=== PATIENT | female | born 1950 | race Caucasian/White ===

== ENCOUNTER 2018-01-27 00:48 | Inpatient (IN) ==
--- NOTE | 2018-01-27 00:52 | Emergency Department Note ---
Disposition Clinical Impression: Nausea vomiting and diarrhea, Viral illness, Hypoxia Disposition: Admitted As Inpatient Condition: Fair Referrals: Mary Bryan CNP [Primary Care Provider] - Forms: ED Satisfaction Letter Time of Disposition: 03:42 Nausea/Vomiting/Diarrhea HPI - General Chief complaint: ED Nausea/Vomiting/Diarrhea Stated complaint: abd pain, n/v Time Seen by Provider: 01/27/18 00:51 Source: patient, EMS Mode of arrival: EMS Limitations: no limitations Nursing Notes Reviewed: Yes Vital Signs Reviewed: Yes - History of Present Illness HPI Narrative: Patient presents today with 2 days of worsening nausea vomiting diarrhea and abdominal pain. Daughter states there is been some confusion at home as well. Patient has a history of asthma and states that she has had a cough but it is nonproductive. She has had a fever at home. There is not been any blood in her vomit or stool. She is no sick contacts. Pt Subjective Complaint: nausea, vomiting, diarrhea, abdominal pain - Related Data Home Medications Medication Instructions Recorded Confirmed Albuterol Sulfate [Ventolin Hfa] 90 mcg IH Q4H PRN 02/07/15 01/27/18 Metoprolol [Lopressor] 50 mg PO BID 02/07/15 01/27/18 Valsartan [Diovan] 160 mg PO DAILY 02/07/15 01/27/18 Cetirizine HCl [Zyrtec] 10 mg PO QAM 01/27/18 01/27/18 Dulaglutide [Trulicity] 0.75 mg SQ QWEEK 01/27/18 01/27/18 FLUoxetine HCl [Fluoxetine HCl] 40 mg PO QAM 01/27/18 01/27/18 Fluticasone Propionate Nasal 16 gm NS BID 01/27/18 01/27/18 [Flonase] Furosemide [Lasix] 40 mg PO DAILY 01/27/18 01/27/18 Insulin Lispro Protamin/Lispro 40 unit SQ BID 01/27/18 01/27/18 [Humalog Mix 75-25 Kwikpen] Montelukast [Singulair] 10 mg PO HS 01/27/18 01/27/18 Potassium Chloride [Klor-Con 10] 10 meq PO BID 01/27/18 01/27/18 amLODIPine [Norvasc] 5 mg PO DAILY 01/27/18 01/27/18 Allergies Allergy/AdvReac Type Severity Reaction Status Date / Time [place] Allergy Swelling Verified 01/27/18 01:11 of Lip/Tongue/Throat doxycycline AdvReac Abdominal Unverified 02/04/15 14:37 Pain pregabalin [From Lyrica] AdvReac Swelling Unverified 02/04/15 14:37 of Lip/Tongue/Throat Review of Systems: All other systems are negative except as noted/marked Chart generated with voice recognition software Nursing notes reviewed Old records reviewed Past Medical History - Past Medical History Attestation: Yes The following information was validated with the patient. Source: patient, old records reviewed, nursing notes reviewed Medical history: Reports: asthma Psychiatric history: Reports: anxiety, depression - Social History Smoking Status: Never smoker Smokeless Tobacco Status: No Alcohol use: Reports: none Drug use: Reports: none Physical Exam General: Mild distress mildly tachycardic hypoxic on arrival Head: normocephalic, atraumatic Eyes: EOMI, PERRLA mouth: Dry mucous membranes Neck: NO CLA, Supple Chest wall: normal rise, no crepitus, no deformity noted Lungs: moving air well, no distress Heart: Tachycardic and regular Abd: soft, diffusely tender but it is not a surgical abdomen. Hyperactive bowel sounds : deferred MSK: strength equal in all four extremities Ext: moves all four extremities, no obvious deformities Skin: cap refill normal, warm, dry neuro : CN2-12 grossly intact, A&Ox3 Psych: normal affect, not anxious Course Vital Signs Temperature 99.4 F 01/27/18 00:49 Pulse Rate 105 01/27/18 00:49 Respiratory Rate 16 01/27/18 00:49 Blood Pressure 155/69 01/27/18 00:49 O2 Sat by Pulse Oximetry 86 01/27/18 00:49 Temperature 99.4 F 01/27/18 00:49 Pulse Rate 94 01/27/18 03:35 Respiratory Rate 14 01/27/18 03:35 Blood Pressure 160/70 01/27/18 03:35 O2 Sat by Pulse Oximetry 88 01/27/18 03:35 Oxygen Delivery Oxygen Delivery Room Air Nausea/Vomiting/Diarrhea - MDM Narrative Medical decision making narrative: Patient presented today with fever, n/v/d and not feeling well. Workup unremarkable. Patient had mentioned right foot pain fromw hens he fell. when I went to eval her foot, no bruising or redness noted. After extensive workup, patient feeling much better, and appears to have viral infection. no vomiting no diarrhea. We did give her one duoneb, and then did a trial off o2. Patient states she's feeling okay however off o2, she desatted down to 84%. Patient reluctantly agreed to be placed back on o2 and stay the night. I suspect her viral process could have exacerbated her asthma. Patient does have sleep apnea and is supposed to wear cpap at night, but admits she doesn't wear it. Dr Palma aware of patient, accepts to floor. Will do CTA of chest to rule out pE prior to admit CTA negative for PE. patient resting comfortably on re-exam. Will admit as discussed - Medical Records Medical records reviewed: Yes I reviewed the patient's medical records. - Lab Data Lab results reviewed: Yes I reviewed the patient's lab results. Result diagrams: 01/27/18 01:42 01/27/18 01:42 Lab Results 01/27/18 01/27/18 01/27/18 Range/Units 01:29 01:42 01:42 WBC 11.2 H (4.3-11.1) K/mcL RBC 3.82 (3.82-4.97) M/mcL Hgb 11.3 L (11.5-15.4) g/dL Hct 33.9 L (35.3-44.9) % MCV 88.7 (83.0-100.0) fL MCH 29.6 (28.0-33.3) pg MCHC 33.3 (31.6-35.5) g/dL RDW 14.3 (11.5-14.5) % Plt Count 167 (140-400) K/mcL MPV 10.3 (9.4-12.4) fL Immature Gran % 1.3 (0-4) % Seg Neutrophils % 88.8 % Lymphocytes % 4.7 % Monocytes % 4.7 % Eosinophils % 0.3 % Basophils % 0.2 % Neutrophils # 10.0 H (1.6-8.9) K/mcL Lymphocytes # 0.5 L (0.6-4.6) K/mcL Monocytes # 0.5 (0.0-1.3) K/mcL Eosinophils # 0.0 (0.0-0.6) K/mcL Basophils # 0.0 (0.0-0.2) K/mcL Sample Site ABG pH (7.32-7.45) pH Units ABG pCO2 (35-45) mmHg ABG pO2 (85-104) mmHg ABG HCO3 (21-27) mEq/L ABG Total CO2 (20-26) mEq/L ABG O2 Saturation (95-98) % ABG Base Excess (-2 to 3) mEq/L [place] Test O2 Delivery Device Inspired O2 (1-15=lpm [id number]=%) Sodium 133 L (136-145) mEq/L Potassium 4.4 (3.5-5.1) mEq/L Chloride 92 L (98-107) mEq/L Carbon Dioxide 33 H (23-29) mEq/L BUN 14 (8-23) mg/dL Creatinine 1.20 (0.60-1.20) mg/dL Est GFR ( Amer) 55 L (> 60) Est GFR (Non-Af Amer) 45 L (> 60) BUN/Creatinine Ratio 12 (6-26) Glucose 253 H (70-105) mg/dL Calculated Osmolality 285 (280-300) Lactic Acid (0.5-2.2) mmol/L Calcium 9.3 (8.6-10.3) mg/dL Magnesium (1.6-2.6) mg/dL Total Bilirubin 0.8 (0.3-1.0) mg/dL AST 25 (13-39) Units/L ALT 15 (7-52) Units/L Alkaline Phosphatase 89 (34-104) Units/L Troponin I (< 0.04) ng/mL Serum Total Protein 7.2 (6.4-8.9) g/dL Albumin 4.0 (3.5-5.7) g/dL Globulin 3.2 (2.4-3.5) g/dL Albumin/Globulin Ratio 1.3 (1.1-2.2) Lipase 7 L (11-82) Units/L Urine Color Yellow (Yellow) Urine Clarity Clear (Clear) Urine pH 8.5 H (5.0-8.0) pH Units Ur Specific [place] 1.020 (1.010-1.025) Urine Protein Negative (Neg-Trace) mg/dL Urine Glucose (UA) 250 H (Normal) mg/dL Urine Ketones Negative (Negative) mg/dL Urine Blood Negative (Negative) Urine Nitrite Negative (Negative) Urine Bilirubin Negative (Negative) Urine Urobilinogen Normal (Normal) mg/dL Ur Leukocyte Esterase Negative (Negative) Ur Culture Indicated? NO (NO) 01/27/18 01/27/18 01/27/18 Range/Units 01:42 01:42 02:59 WBC (4.3-11.1) K/mcL RBC (3.82-4.97) M/mcL Hgb (11.5-15.4) g/dL Hct (35.3-44.9) % MCV (83.0-100.0) fL MCH (28.0-33.3) pg MCHC (31.6-35.5) g/dL RDW (11.5-14.5) % Plt Count (140-400) K/mcL MPV (9.4-12.4) fL Immature Gran % (0-4) % Seg Neutrophils % % Lymphocytes % % Monocytes % % Eosinophils % % Basophils % % Neutrophils # (1.6-8.9) K/mcL Lymphocytes # (0.6-4.6) K/mcL Monocytes # (0.0-1.3) K/mcL Eosinophils # (0.0-0.6) K/mcL Basophils # (0.0-0.2) K/mcL Sample Site R Radial ABG pH 7.43 (7.32-7.45) pH Units ABG pCO2 47 H (35-45) mmHg ABG pO2 78 L (85-104) mmHg ABG HCO3 32 H (21-27) mEq/L ABG Total CO2 33 H (20-26) mEq/L ABG O2 Saturation 96 (95-98) % ABG Base Excess 6 H (-2 to 3) mEq/L [place] Test Positive O2 Delivery Device Cannula Inspired O2 2.5 (1-15=lpm js27-780=%) Sodium (136-145) mEq/L Potassium (3.5-5.1) mEq/L Chloride (98-107) mEq/L Carbon Dioxide (23-29) mEq/L BUN (8-23) mg/dL Creatinine (0.60-1.20) mg/dL Est GFR ( Amer) (> 60) Est GFR (Non-Af Amer) (> 60) BUN/Creatinine Ratio (6-26) Glucose (70-105) mg/dL Calculated Osmolality (280-300) Lactic Acid 1.6 (0.5-2.2) mmol/L Calcium (8.6-10.3) mg/dL Magnesium 1.8 (1.6-2.6) mg/dL Total Bilirubin (0.3-1.0) mg/dL AST (13-39) Units/L ALT (7-52) Units/L Alkaline Phosphatase (34-104) Units/L Troponin I < 0.03 (< 0.04) ng/mL Serum Total Protein (6.4-8.9) g/dL Albumin (3.5-5.7) g/dL Globulin (2.4-3.5) g/dL Albumin/Globulin Ratio (1.1-2.2) Lipase (11-82) Units/L Urine Color (Yellow) Urine Clarity (Clear) Urine pH (5.0-8.0) pH Units Ur Specific [place] (1.010-1.025) Urine Protein (Neg-Trace) mg/dL Urine Glucose (UA) (Normal) mg/dL Urine Ketones (Negative) mg/dL Urine Blood (Negative) Urine Nitrite (Negative) Urine Bilirubin (Negative) Urine Urobilinogen (Normal) mg/dL Ur Leukocyte Esterase (Negative) Ur Culture Indicated? (NO) - Radiology Data Radiology results reviewed: Yes I reviewed the patient's radiology results. patient mentioned to the clinical lab technologist she did not tolerate ct contrast well, changed to without. EXAMINATION: SINGLE XRAY VIEW OF THE CHEST 01/27/2018 1:47 am COMPARISON: Chest radiograph 06/12/2014 HISTORY: ORDERING SYSTEM PROVIDED HISTORY: cough FINDINGS: Mediastinum: Normal heart size and mediastinal contours for technique. Lungs: Normal lung volumes. No pneumothorax or airspace consolidation. Pleura: No pleural effusion or thickening. Musculoskeletal: No acute osseous abnormality. Unremarkable soft tissues. Upper Abdomen: Included upper abdomen is unremarkable. XR/XR chest 1V portable IMPRESSION: No acute findings. No focal pneumonia. D/ / Cody Galeas / Cody Galeas Interpreting Provider: Cody Galeas R #: [id number] XR/XR foot 3V RT IMPRESSION: Soft tissue swelling and skin thickening about the lower leg and foot. No underlying acute osseous abnormality. D/ / Cody Galeas / Cody Galeas Interpreting Provider: Cody Galeas EXAMINATION: CT OF THE ABDOMEN AND PELVIS WITHOUT CONTRAST 01/27/2018 2:35 am TECHNIQUE: CT of the abdomen and pelvis was performed without the administration of intravenous contrast. Multiplanar reformatted images are provided for review. Dose modulation, iterative reconstruction, and/or weight based adjustment of the mA/kV was utilized to reduce the radiation dose to as low as reasonably achievable. COMPARISON: None. HISTORY: ORDERING SYSTEM PROVIDED HISTORY: abd pain FINDINGS: ABDOMEN Liver: Low-attenuation liver parenchyma. Liver is enlarged measuring over 19 cm craniocaudal. Gallbladder: Surgically absent. Biliary: No intra or extrahepatic bile duct dilatation. Pancreas: Normal. Spleen: Enlarged, measuring just over 13 cm in maximum dimension. Adrenals: Normal. Kidneys: Kidneys are symmetric in size. No hydronephrosis or nephrolithiasis. GI Tract: No apparent wall thickening or obstruction. Appendix is not identified, however there is no pericecal inflammatory stranding or fluid. Peritoneum/Retroperitoneum: No enlarged lymph nodes, free air or free fluid. Vascular: Normal caliber abdominal aorta. PELVIS Genitourinary: Normal urinary bladder. Surgically absent uterus. Normal vaginal cuff. No adnexal mass. Other: No free fluid. No enlarged lymph nodes. MUSCULOSKELETAL Bones and Soft Tissues: No acute soft tissue or osseous abnormality. Spinal cord stimulator with generator in the lower back soft tissues. Surrounding fat stranding. Lumbar spondylosis. Other: Clear lung bases. Normal included heart and pericardium. CT/CT abd pelvis wo no iv no oral IMPRESSION: No acute abdominopelvic findings. Hepatosplenomegaly with hepatic steatosis. D/ / Cody Galeas / Cody Galeas Interpreting Provider: Cody Galeas - EKG Data EKG attestation: Yes I reviewed and interpreted this EKG. EKG results narrative: EKG interpreted by myself as sinus rhythm with rate 97 and a QTC of [address] elevation . prior EKG is not available at this time
[2018-01-27] MEDS ORDERED: *HR* FentaNYL (PF) 100 MCG/2 ML VIAL IVP ONE (01:05)
[2018-01-27] MEDS ORDERED: Ondansetron 4 MG/2 ML VIAL IVP ONE (01:05)
[2018-01-27] MEDS ORDERED: 0.9 % Sodium Chloride 1,000 ML IVC ONE (01:05)
[2018-01-27] MEDS ORDERED: Isovue-370 500 ML INFUS..BTL IV ONE ×4 (01:08→05:21)
[2018-01-27 02:11] LABS: Bilirubin,Urine Negative (Negative); Blood,Urine Negative (Negative); Clarity,Urine Clear (Clear); Color,Urine Yellow (Yellow); Glucose,Urine (UA) 250 mg/dL (Normal); Ketones,Urine Negative (Negative); Leukocyte Esterase,Urine Negative (Negative); Nitrite,Urine Negative (Negative); PH,Urine 8.5 pH Units (5.0-8.0); Protein,Urine Negative (Neg-Trace); Urobilinogen,Urine Normal (Normal)
[2018-01-27 02:18] LABS: Basophils % 0.2 %; Eosinophils % 0.3 %; Hematocrit 33.9 % (35.3-44.9); Hemoglobin 11.3 g/dL (11.5-15.4); Immature Granulocytes % 1.3 % (0-4); Lymphocytes # 0.5 K/mcL (0.6-4.6); Lymphocytes % 4.7 %; Mean Corpuscular HGB Conc 33.3 g/dL (31.6-35.5); Mean Corpuscular Hemoglobin 29.6 pg (28.0-33.3); Mean Corpuscular Volume 88.7 fL (83.0-100.0); Mean Platelet Volume 10.3 fL (9.4-12.4); Monocytes # 0.5 K/mcL (0.0-1.3); Monocytes % 4.7 %; Platelet Count 167 K/mcL (140-400); Red Blood Count 3.82 M/mcL (3.82-4.97); Red Cell Distribution Width 14.3 % (11.5-14.5); Segmented Neutrophils % 88.8 %
[2018-01-27 02:22] LABS: Albumin/Globulin Ratio 1.3 (1.1-2.2); Bilirubin,Total 0.8 mg/dL (0.3-1.0); Calcium 9.3 mg/dL (8.6-10.3); Globulin 3.2 g/dL (2.4-3.5); Magnesium 1.8 mg/dL (1.6-2.6); Potassium 4.4 mEq/L (3.5-5.1); Total Protein 7.2 g/dL (6.4-8.9); Troponin I < 0.03 ng/mL (< 0.04)
[2018-01-27] MEDS ORDERED: 0.9 % Sodium Chloride 500 ML IVC ONE (02:31)
[2018-01-27 03:02] LABS: ABG Base Excess 6 mEq/L (-2 to 3); ABG HCO3 32 mEq/L (21-27); ABG Oxygen Saturation 96 % (95-98); ABG PCO2 47 mmHg (35-45); ABG PH 7.43 pH Units (7.32-7.45); ABG PO2 78 mmHg (85-104); ABG TCO2 33 mEq/L (20-26); Blood Gas FiO2 2.5 (1-15=lpm or21-100=%)
[2018-01-27] MEDS ORDERED: Ipratropium/Albuterol Neb 3 ML IH ONE (03:05)
[2018-01-27] MEDS ORDERED: cefTRIAXone 1,000 MG in Water for inj. (sterile) 20 ML 10 ML IVP ONE ×2 (03:46→05:21)
[2018-01-27] MEDS ORDERED: Azithromycin 500 MG in D5% in Water 250 ML IVPB SCH (04:00)
[2018-01-27] MEDS ORDERED: Naloxone 0.4 MG/ML INJ IVP PRN (05:21)
[2018-01-27] MEDS ORDERED: (Dulaglutide [Trulicity] 0.75 MG) SQ SCH (05:21)
[2018-01-27] MEDS ORDERED: 0.9 % Sodium Chloride 1,000 ML IVC SCH (05:21)
[2018-01-27] MEDS ORDERED: Ibuprofen 400 MG TABLET PO PRN (05:21)
[2018-01-27] MEDS: Loratadine 10 MG TABLET PO SCH (08:05)
[2018-01-27] MEDS: FLUoxetine 20 MG CAPSULE PO SCH (08:05)
[2018-01-27] MEDS: Fluticasone Propionate Nasal 50 MCG/SPRAY BOTTLE NS SCH ×2 (08:07→21:04)
[2018-01-27] MEDS: Insulin NPH/REG 70/30 100 UNIT/ML (x5UNIT) SQ SCH ×2 (08:18→16:40)
[2018-01-27] MEDS ORDERED: Furosemide 40 MG TABLET PO SCH (09:00)
[2018-01-27] MEDS ORDERED: amLODIPine 5 MG TABLET PO SCH (09:00)
[2018-01-27] MEDS: Valsartan 160 MG TABLET PO SCH (11:13)
[2018-01-27] MEDS ORDERED: *HR* Dextrose 50 % in Water (Syg) 50 ML SYRINGE IVP PRN (11:19)
[2018-01-27] MEDS ORDERED: Dextrose Gel 15 GM/37.5 ML TUBE PO PRN ×2 (11:19)
[2018-01-27] MEDS ORDERED: D5% in Water 1,000 ML IVC PRN (11:19)
--- NOTE | 2018-01-27 11:59 | Internal Med History&Physical ---
Date of Encounter: 01/27/18 Time of Encounter: 11:20 Assessment and Plan (1) Nausea vomiting and diarrhea Current visit: Yes Status: Acute Suspect viral gastroenteritis. Continue IV fluids and use antiemetics as needed. (2) Hypertension Current visit: Yes Status: Chronic Continue Norvasc, Lopressor, and Diovan. Qualifiers: Hypertension type: essential hypertension Qualified Code(s): I10 - Essential (primary) hypertension (3) Venous stasis dermatitis of both lower extremities Current visit: Yes Status: Chronic Change from Lasix to Bumex to lessen edema and erythema. Will start oral Keflex with lactobacillus for possible cellulitis. (4) Anemia Current visit: Yes Status: Acute Duration unknown. Hemoglobin was normal at 12.5 on 02/04/2015. Recheck labs in a.m. Qualifiers: Anemia type: unspecified type Qualified Code(s): D64.9 - Anemia, unspecified (5) DM type 2 (diabetes mellitus, type 2) Current visit: Yes Status: Chronic Check hemoglobin A1c in a.m. Continue Trulicity, 70/30 insulin, and do Accu- Cheks with SSI. Qualifiers: Diabetes mellitus complication status: with kidney complications Diabetes mellitus complication detail: with chronic kidney disease Chronic kidney disease stage: stage 3 (moderate) Qualified Code(s): E11.22 - Type 2 diabetes mellitus with diabetic chronic kidney disease; N18.3 - Chronic kidney disease, stage 3 (moderate); Z79.4 - terminal operator (current) use of insulin (6) CKD (chronic kidney disease) Current visit: Yes Status: Chronic Monitor renal indices. Qualifiers: Chronic kidney disease stage: stage 3 (moderate) Qualified Code(s): N18.3 - Chronic kidney disease, stage 3 (moderate) (7) Hypoxia Current visit: Yes Status: Acute Check room air oximetry on 6 minute walk in a.m. Internal Medicine - H&P: HPI Chief complaint: Vomiting and diarrhea Admitted From: Emergency Dept Plans for Post Hospital Care: Home History of present illness: Ms. Henson is a 67 year old female came to emergency room stating she had 3 day history of vomiting, diarrhea, crampy abdominal pain, fevers and chills. Her speech seemed confused the evening of January 26 so family brought her to emergency room. She was evaluated and admitted to [facility] floor for ongoing care needs. She states she has not had an episode of vomiting or diarrhea since coming through emergency room. She has minimal residual abdominal discomfort at present time. She does not feel hunger. She denies melena, hematochezia, or hematemesis. She reports family members had similar but less severe symptoms 1 -2 days before her symptoms developed. GI history is pertinent for cholecystectomy but she denies disorders of her liver or exocrine pancreas. Past Med Surg Social Fam HX - Past Medical History Medical history: arthritis, asthma, diabetes, fibromyalgia, hypertension Additional medical history: apnea Psychiatric history: anxiety, depression - Past Surgical History Surgical History: cholecystectomy, hysterectomy, knee replacement Additional surgical history: pain pump back. bladder tuck - Social History Smoking Status: Never smoker Smokeless Tobacco Status: No Alcohol use: none Drug use: none - Family History Father Living Status: Age at : 55 Hx Family Cardiac Disorders: Yes Hx Family Endocrine Disorder: Yes (diabetes) Internal Medicine - H&P: Meds Albuterol Sulfate [Ventolin Hfa] 90 mcg IH Q4H PRN 02/07/15 [History] Metoprolol [Lopressor] 50 mg PO BID 02/07/15 [History] Valsartan [Diovan] 160 mg PO DAILY 02/07/15 [History] Cetirizine HCl [Zyrtec] 10 mg PO QAM 01/27/18 [History] Dulaglutide [Trulicity] 0.75 mg SQ QWEEK 01/27/18 [History] FLUoxetine HCl [Fluoxetine HCl] 40 mg PO QAM 01/27/18 [History] Fluticasone Propionate Nasal [Flonase] 16 gm NS BID 01/27/18 [History] Furosemide [Lasix] 40 mg PO DAILY 01/27/18 [History] Insulin Lispro Protamin/Lispro [Humalog Mix 75-25 Kwikpen] 40 unit SQ BID [History] Montelukast [Singulair] 10 mg PO HS 01/27/18 [History] Potassium Chloride [Klor-Con 10] 10 meq PO BID 01/27/18 [History] amLODIPine [Norvasc] 5 mg PO DAILY 01/27/18 [History] 3 Allergy/AdvReac Type Severity Reaction Status Date / Time [place] Allergy Swelling Verified 01/27/18 01:11 of Lip/Tongue/Throat doxycycline AdvReac Abdominal Verified 01/27/18 06:12 Pain pregabalin [From Lyrica] AdvReac Swelling Verified 01/27/18 06:12 of Lip/Tongue/Throat All Systems PM: A 10-system review of systems was performed and is negative for pertinent findings except as documented above in the HPI. Review of systems: Gen.: She states her weight has increased approximately 40 pounds in the past year, unintentionally Cardiovascular: She has history of hypertension but denies DE heart failure angina DVT or pulmonary embolus. She reports she has frequent lower leg edema. Echocardiogram 04/14/2016 showed LVEF of 60% with reported mild AI, MR, and pulmonary regurgitation. There was LAE at 4.20 cm. Respiratory: She is a lifelong nonsmoker. She claims diagnosis of asthma but does not use home oxygen. She has a diagnosis of YUE but does not wear CPAP as prescribed. She had hypoxemia in emergency room with room oximetry 84% at rest. GI: As per history of present illness : She denies hematuria dysuria or kidney stones. She was unaware she has chronic kidney disease on labs since 2013 Neurologic: She denies large distribution strokes or seizures. Endocrine: She was diagnosed with DM 2 approximately 2002. Hemoglobin A1c was 8.3% on 11/09/2015. She denies hyperlipidemia. Hematology/oncology: She had uterine cancer with curative hysterectomy approximately 1978. She reports skin cancer removal in the past without recurrence. She was unaware she had mild anemia in emergency room. She denies other internal malignancies. Psychiatric: She has depression and anxiety but denies other mental health issues [place] skeletal: She denies arthritis gout or other bone joint or muscle disorders. She reports she twisted her ankle while ambulating to the bathroom prior to coming to emergency room. - Constitutional Vitals: Temp Pulse Resp BP Pulse Ox 98.2 F 77 16 121/60 95 01/27/18 11:12 01/27/18 11:12 01/27/18 11:12 01/27/18 11:12 01/27/18 11:12 Exam: Gen.: She is a well-developed obese female lying in bed who appears in no severe distress at present time HEENT: Head is atraumatic and normocephalic. Eyes: EOMI. There is no scleral icterus. Mouth: Mucosa is moist. Neck: Supple and nontender. There is no thyromegaly or adenopathy noted. Heart: Regular without murmurs gallops or ectopics Lungs: No wheezes or crackles are heard. Abdomen: Soft and nontender. No masses or guarding are noted. Extremities: She has erythema of her lower legs bilaterally. There is trace edema of the dorsum of the feet and lower anterior shins bilaterally. Dorsalis pedis and posttibial pulses are trace palpable. Her feet are warm to touch. She has multiple shallow blisters that have ruptured on her lower legs bilaterally more on the left than the right. Neurologic: Mental status: She is talkative and a good historian. Cranial nerves: Smile is symmetric. Forehead wrinkles bilaterally. Tongue protrudes midline. EOMI. Motor: There is no pronator drift. Cerebellar: Finger to nose is intact bilaterally. Skin: Warm and dry Internal Med - H&P Results - Labs CBC & Chem 7: 01/27/18 01:42 01/27/18 01:42
[2018-01-27] MEDS: Bumetanide 1 MG TABLET PO SCH (12:34)
[2018-01-27] MEDS: Insulin LISPRO 300 UNITS/3 ML VIAL SQ SCH ×3 (12:36→21:10)
[2018-01-27] MEDS ORDERED: DiphenhydraMINE CREAM 28.4 GM TUBE TP SCH (12:50)
[2018-01-27] MEDS ORDERED: cephALEXin 500 MG CAPSULE PO SCH (15:00)
[2018-01-27] MEDS: Neosporin OINT 15 GM TUBE TP SCH ×2 (15:14→21:05)
[2018-01-27] MEDS: Acetaminophen 325 MG TABLET PO PRN (15:56)
[2018-01-27 18:00] LABS: Acinetobacter baumannii by PCR Not Detected (Not Detect); Candida albicans by PCR Not Detected (Not Detect); Candida glabrata by PCR Not Detected (Not Detect); Candida krusei by PCR Not Detected (Not Detect); Candida parapsilosis by PCR Not Detected (Not Detect); Candida tropicalis by PCR Not Detected (Not Detect); Enterobacter cloacae Cmplx PCR Not Detected (Not Detect); Enterobacteriaceae by PCR Not Detected (Not Detect); Enterococcus by PCR Not Detected (Not Detect); Escherichia coli by PCR Not Detected (Not Detect); Klebsiella oxytoca by PCR Not Detected (Not Detect); Klebsiella pneumoniae by PCR Not Detected (Not Detect); Proteus by PCR Not Detected (Not Detect); Pseudomonas aeruginosa by PCR Not Detected (Not Detect); Serratia marcescens by PCR Not Detected (Not Detect); Staphylococcus aureus by PCR Not Detected (Not Detect); Staphylococcus by PCR Not Detected (Not Detect); Streptococcus agalactiae(B)PCR Not Detected (Not Detect); Streptococcus by PCR Not Detected (Not Detect); Streptococcus pneumoniae PCR Not Detected (Not Detect); Streptococcus pyogenes (A) PCR Not Detected (Not Detect)
[2018-01-27] MEDS: Lactobacillus 1 EACH CAP.SPRINK PO SCH (21:04)
[2018-01-27] MEDS: cefTRIAXone 1,000 MG in Water for inj. (sterile) 20 ML 10 ML IVP SCH (21:04)
[2018-01-27] MEDS: *HR* HYDROcodone/Acet 5/325 mg TABLET PO PRN (22:33)
[2018-01-28] MEDS: Acetaminophen 325 MG TABLET PO PRN ×2 (01:56→17:33)
[2018-01-28] MEDS ORDERED: Azithromycin 500 MG in D5% in Water 250 ML IVPB SCH (04:00)
[2018-01-28 06:29] LABS: Basophils % 0.1 %; Eosinophils # 0.2 K/mcL (0.0-0.6); Hematocrit 30.1 % (35.3-44.9); Hemoglobin 9.6 g/dL (11.5-15.4); Immature Granulocytes % 0.4 % (0-4); Lymphocytes % 12.7 %; Mean Corpuscular HGB Conc 31.9 g/dL (31.6-35.5); Mean Corpuscular Hemoglobin 29.1 pg (28.0-33.3); Mean Corpuscular Volume 91.2 fL (83.0-100.0); Mean Platelet Volume 10.1 fL (9.4-12.4); Monocytes # 0.5 K/mcL (0.0-1.3); Monocytes % 7.2 %; Neutrophils # 5.8 K/mcL (1.6-8.9); Platelet Count 140 K/mcL (140-400); Red Cell Distribution Width 14.2 % (11.5-14.5); Segmented Neutrophils % 77.6 %
[2018-01-28 06:49] LABS: BUN/Creatinine Ratio 14 (6-26); Blood Urea Nitrogen 15 mg/dL (8-23); Calcium 8.4 mg/dL (8.6-10.3); Carbon Dioxide 32 mEq/L (23-29); Chloride 98 mEq/L (98-107); Glucose 122 mg/dL (70-105); Osmolality,Calculated 284 (280-300); Potassium 3.7 mEq/L (3.5-5.1); Sodium 136 mEq/L (136-145); eGFR For Non-African Americans 50 (> 60)
[2018-01-28] MEDS: Insulin LISPRO 300 UNITS/3 ML VIAL SQ SCH ×4 (07:50→20:45)
[2018-01-28] MEDS: Fluticasone Propionate Nasal 50 MCG/SPRAY BOTTLE NS SCH ×2 (07:57→20:52)
[2018-01-28] MEDS: Loratadine 10 MG TABLET PO SCH (07:59)
[2018-01-28] MEDS: Bumetanide 1 MG TABLET PO SCH (07:59)
[2018-01-28] MEDS: Lactobacillus 1 EACH CAP.SPRINK PO SCH ×2 (07:59→20:53)
[2018-01-28] MEDS: Valsartan 160 MG TABLET PO SCH (07:59)
[2018-01-28] MEDS: Neosporin OINT 15 GM TUBE TP SCH ×2 (07:59→20:53)
[2018-01-28] MEDS: FLUoxetine 20 MG CAPSULE PO SCH (07:59)
[2018-01-28] MEDS: Insulin NPH/REG 70/30 100 UNIT/ML (x5UNIT) SQ SCH ×2 (08:00→17:12)
--- NOTE | 2018-01-28 09:32 | Electrocardiograph Report ---
[address] [place], [place] [address] Test Date: 2018-01-27 Pat Name: Brook Henson Department: [id number] Room: [facility] Gender: F Didactic Instructor: Brennon : 1950 Requested By: Mercedes Ghosh Order Number: [id number] Reading MD: Shelbi Menendez Measurements Intervals [place] Rate: 97 P: 55 IN: 193 QRS: -27 QRSD: 96 T: 55 QT: 372 QTc: 427 Interpretive Statements SINUS RHYTHM BORDERLINE LEFT AXIS DEVIATION Electronically Signed On 01-28-2018 9:31:02 EDT by Shelbi Menendez
[2018-01-28 09:44] LABS: % Iron Saturation 9 % (15-50); Iron 22 mcg/dL (50-170); Transferrin 176 mg/dL (203-362)
[2018-01-28 10:02] LABS: Ferritin 143 ng/mL (10-120)
[2018-01-28 10:07] LABS: Folate 14.4 ng/mL (3.0-16.0)
--- NOTE | 2018-01-28 15:28 | Internal Med Progress Note ---
Date of Encounter: 01/28/18 Time of Encounter: 15:15 - Assessment and plan (1) Nausea vomiting and diarrhea Current Visit: Yes Status: Acute Assessment and plan: January 28. Appears resolved. Will not workup or treat further. (2) Bacteremia due to Gram-negative bacteria Current Visit: Yes Status: Acute Assessment and plan: January 28. Final culture report pending. Continue Rocephin with lactobacillus empirically. (3) Hypertension Current Visit: Yes Status: Chronic Assessment and plan: January 28. Continue Lopressor, Diovan, and Bumex. Norvasc was discontinued to avoid worsening edema. Qualifiers: Hypertension type: essential hypertension Qualified Code(s): I10 - Essential (primary) hypertension (4) Venous stasis dermatitis of both lower extremities Current Visit: Yes Status: Chronic Assessment and plan: January 28. Continue Bumex. (5) Anemia Current Visit: Yes Status: Acute Assessment and plan: January 28. Hemoglobin decreased to 9.6 today. Anemia testing showed iron 22, transferrin saturation 9%, transferrin 176, ferritin 143, B12 310, and folate 14.4. Start ferrous sulfate with vitamin C in a.m. Qualifiers: Anemia type: unspecified type Qualified Code(s): D64.9 - Anemia, unspecified (6) DM type 2 (diabetes mellitus, type 2) Current Visit: Yes Status: Chronic Assessment and plan: January 28. Hemoglobin A1c pending. Continue Trulicity, 70/30 insulin, and Accu-Cheks with SSI. Qualifiers: Diabetes mellitus complication status: with kidney complications Diabetes mellitus complication detail: with chronic kidney disease Chronic kidney disease stage: stage 3 (moderate) Qualified Code(s): E11.22 - Type 2 diabetes mellitus with diabetic chronic kidney disease; N18.3 - Chronic kidney disease, stage 3 (moderate); Z79.4 - prison (current) use of insulin (7) CKD (chronic kidney disease) Current Visit: Yes Status: Chronic Assessment and plan: January 28. Creatinine decreased to 1.09 with estimated GFR 50. Continue present regimen. Qualifiers: Chronic kidney disease stage: stage 3 (moderate) Qualified Code(s): N18.3 - Chronic kidney disease, stage 3 (moderate) (8) Hypoxia Current Visit: Yes Status: Acute Assessment and plan: January 28. Room air oximetry showed saturation decreasing to approximately 85 % on 6 minute walk today. Retest in a.m. - Subjective Interval history: January 28. She has no new complaints and feels better. She states vomiting and diarrhea have resolved. - Constitutional Vitals: Temp Pulse Resp BP Pulse Ox 99.2 F 73 17 114/59 92 01/28/18 10:37 01/28/18 10:37 01/28/18 10:37 01/28/18 10:37 01/28/18 10:37 Exam: She is resting comfortably in bed and appears in no acute distress. Her affect is bright and cheerful. Extremities show decreased erythema and edema. I reviewed her medications and lab results. Urine preliminary culture report shows greater than 100,000 gram-negative rods with final C/S pending Internal Medicine: Result - Labs CBC & Chem 7: 01/28/18 05:52 01/28/18 05:52 Labs: Short CBC 01/28/18 Range/Units 05:52 WBC 7.5 (4.3-11.1) K/mcL Hgb 9.6 L D (11.5-15.4) g/dL Hct 30.1 L (35.3-44.9) % Plt Count 140 (140-400) K/mcL Neutrophils # 5.8 (1.6-8.9) K/mcL BMP 01/28/18 05:52 Sodium 136 Potassium 3.7 Chloride 98 Carbon Dioxide 32 H BUN 15 Creatinine 1.09 Glucose 122 H Calcium 8.4 L - ABG Interpretation ABG results: ABG ABG pH 7.43 pH Units (7.32-7.45) 01/27/18 02:59 ABG pCO2 47 mmHg (35-45) H 01/27/18 02:59 ABG pO2 78 mmHg (85-104) L 01/27/18 02:59 ABG O2 Saturation 96 % (95-98) 01/27/18 02:59 Consult Discharge Plan - Plan Referrals: Mary Bryan, YOUNG [Primary Care Provider] - 1 week
[2018-01-28] MEDS: cefTRIAXone 1,000 MG in Water for inj. (sterile) 20 ML 10 ML IVP SCH (17:15)
[2018-01-28] MEDS: *HR* HYDROcodone/Acet 5/325 mg TABLET PO PRN (22:16)
[2018-01-28 23:16] VITALS: BP 118/54
[2018-01-29 06:11] LABS: Basophils % 0.2 %; Eosinophils # 0.2 K/mcL (0.0-0.6); Eosinophils % 3.4 %; Hemoglobin 9.5 g/dL (11.5-15.4); Immature Granulocytes % 0.4 % (0-4); Lymphocytes # 0.8 K/mcL (0.6-4.6); Lymphocytes % 14.7 %; Mean Corpuscular HGB Conc 31.7 g/dL (31.6-35.5); Mean Corpuscular Hemoglobin 29.2 pg (28.0-33.3); Mean Corpuscular Volume 92.3 fL (83.0-100.0); Mean Platelet Volume 9.9 fL (9.4-12.4); Monocytes # 0.4 K/mcL (0.0-1.3); Monocytes % 6.7 %; Neutrophils # 3.9 K/mcL (1.6-8.9); Platelet Count 136 K/mcL (140-400); Red Blood Count 3.25 M/mcL (3.82-4.97); Red Cell Distribution Width 14.4 % (11.5-14.5); Segmented Neutrophils % 74.6 %
[2018-01-29] MEDS ORDERED: Ascorbic Acid 500 MG TABLET PO SCH (06:30)
[2018-01-29 06:32] LABS: Calcium 8.4 mg/dL (8.6-10.3); Potassium 3.6 mEq/L (3.5-5.1)
[2018-01-29] MEDS: Insulin LISPRO 300 UNITS/3 ML VIAL SQ SCH ×2 (08:28→12:17)
[2018-01-29] MEDS: FLUoxetine 20 MG CAPSULE PO SCH (08:29)
[2018-01-29] MEDS: Loratadine 10 MG TABLET PO SCH (08:29)
[2018-01-29] MEDS: Lactobacillus 1 EACH CAP.SPRINK PO SCH (08:29)
[2018-01-29] MEDS: Bumetanide 1 MG TABLET PO SCH (08:29)
[2018-01-29] MEDS: Fluticasone Propionate Nasal 50 MCG/SPRAY BOTTLE NS SCH (08:30)
[2018-01-29] MEDS: Insulin NPH/REG 70/30 100 UNIT/ML (x5UNIT) SQ SCH (08:31)
[2018-01-29] MEDS: Neosporin OINT 15 GM TUBE TP SCH (08:31)
[2018-01-29] MEDS: Valsartan 160 MG TABLET PO SCH (08:33)
--- NOTE | 2018-01-29 10:16 | Discharge Summary ---
Date of Encounter: 01/29/18 Time of Encounter: 10:00 - Discharge Diagnosis (1) Nausea vomiting and diarrhea Priority: Primary Status: Resolved (2) Bacteremia due to Gram-negative bacteria Priority: Secondary Status: Acute (3) Hypertension Priority: Secondary Status: Chronic Qualifiers: Hypertension type: essential hypertension Qualified Code(s): I10 - Essential (primary) hypertension (4) Venous stasis dermatitis of both lower extremities Priority: Secondary Status: Chronic (5) Anemia Priority: Secondary Status: Acute Qualifiers: Anemia type: unspecified type Qualified Code(s): D64.9 - Anemia, unspecified (6) DM type 2 (diabetes mellitus, type 2) Priority: Secondary Status: Chronic Qualifiers: Diabetes mellitus complication status: with kidney complications Diabetes mellitus complication detail: with chronic kidney disease Chronic kidney disease stage: stage 3 (moderate) Qualified Code(s): E11.22 - Type 2 diabetes mellitus with diabetic chronic kidney disease; N18.3 - Chronic kidney disease, stage 3 (moderate); Z79.4 - rat exterminator (current) use of insulin (7) CKD (chronic kidney disease) Priority: Secondary Status: Chronic Qualifiers: Chronic kidney disease stage: stage 3 (moderate) Qualified Code(s): N18.3 - Chronic kidney disease, stage 3 (moderate) (8) Hypoxia Priority: Secondary Status: Acute Hospital course: Ms. Henson is a 67 year old female who came to emergency room stating she had 3 day history of vomiting, diarrhea, crampy abdominal pain, fevers and chills. Her speech seemed confused the evening of January 26 so family brought her to emergency room. She was evaluated and admitted to [facility] for ongoing care needs. Initial orders were written by the emergency room physician. I saw her on January 27 and performed the history and physical. She was given IV fluids. Antiemetics were given as needed. She had no vomiting or diarrhea after the first hospital day. One blood culture returned showing Pasteurella multocida. She was given antibiotics during her hospital stay and will continue with Keflex and probiotic for 7 days after discharge. Lasix was discontinued and Bumex initiated for edema. Amlodipine was discontinued to lessen edema. She had significant decrease in the erythema and edema of her lower legs. She will remain off amlodipine at discharge and continue with Bumex instead of Lasix. Room air oximetry on day of discharge show saturation 85% at rest. The patient had some dyspnea and required immediate reinstitution of oxygen for comfort and safety. She will be prescribed oxygen at 2 L/m 08/11 with portable gas and concentrator at discharge. Hypoxemia was not resolved by use of albuterol. 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 She will follow with her PCP within 1 week. - Time Spent with Patient Total time spent providing and/or coordinating discharge services: - Discharge Medications Prescriptions: Ascorbic Acid [Vitamin C] 500 mg PO 0630 #30 tablet Bumetanide [Bumex] 1 mg PO DAILY #30 tablet cephALEXin [Keflex] 500 mg PO TID #21 capsule Ferrous Sulfate 325 mg PO 0630 #30 tablet Lactobacillus [Culturelle] 1 each PO BID #14 cap.[email or web address] Home Medications: Albuterol Sulfate [Ventolin Hfa] 90 mcg IH Q4H PRN 02/07/15 [History] Metoprolol [Lopressor] 50 mg PO BID 02/07/15 [History] Cetirizine HCl [Zyrtec] 10 mg PO QAM 01/27/18 [History] Dulaglutide [Trulicity] 0.75 mg SQ QWEEK 01/27/18 [History] FLUoxetine HCl [Fluoxetine HCl] 40 mg PO QAM 01/27/18 [History] Fluticasone Propionate Nasal [Flonase] 16 gm NS BID 01/27/18 [History] Insulin Lispro Protamin/Lispro [Humalog Mix 75-25 Kwikpen] 40 unit SQ BID [History] Montelukast [Singulair] 10 mg PO HS 01/27/18 [History] Potassium Chloride [Klor-Con 10] 10 meq PO BID 01/27/18 [History] Ascorbic Acid [Vitamin C] 500 mg PO 0630 #30 tablet 01/29/18 [Rx] Bumetanide [Bumex] 1 mg PO DAILY #30 tablet 01/29/18 [Rx] Ferrous Sulfate 325 mg PO 0630 #30 tablet 01/29/18 [Rx] Lactobacillus [Culturelle] 1 each PO BID #14 cap.sprink 01/29/18 [Rx] cephALEXin [Keflex] 500 mg PO TID #21 capsule 01/29/18 [Rx] Allergies/Adverse Reactions: 3 Allergy/AdvReac Type Severity Reaction Status Date / Time [place] Allergy Swelling Verified 01/27/18 01:11 of Lip/Tongue/Throat doxycycline AdvReac Abdominal Verified 01/27/18 06:12 Pain pregabalin [From Lyrica] AdvReac Swelling Verified 01/27/18 06:12 of Lip/Tongue/Throat Date of admission: 01/28/18 19:32 Primary care physician: Mary Bryan CNP - Constitutional Vitals: Temp Pulse Resp BP Pulse Ox 98.4 F 64 16 118/54 85 01/28/18 23:15 01/28/18 23:15 01/28/18 23:15 01/28/18 23:15 01/29/18 09:49 - Patient Status Disposition: Home, Self-Care Condition: Fair - Discharge Instructions Follow Up With: Mary Bryan CNP [Primary Care Provider] - 1 week - Diet and Activity Activity: resume usual activities as tolerated, wear oxygen at all times Diet: advance to your usual diet
[2018-01-29 10:27] LABS: Estimated Average Glucose 177 mg/dl; Hemoglobin A1C 7.8 %
[2018-01-29] MEDS: *HR* HYDROcodone/Acet 5/325 mg TABLET PO PRN (12:19)
== END 2018-01-29 12:25 | disposition home or self-care (01) | DRG 872 ==
LOC: INPPIK 00:48 → EMEROOPIK 00:48 → INPPIK 05:27
PROVIDERS: ADMIT Internal Medicine; ATTEND Internal Medicine